=== PATIENT | female | born 1980 | race Caucasian/White ===

== ENCOUNTER 2016-12-03 19:23 | Emergency (ER) | payer BC, OTHER ==
[~2016-12-03] VITALS: Ht 170.2 cm; Wt 164.5 kg
[~2016-12-03 19:23] MED LIST: AMOX TR-K CLV1 EAC4 PO; Augmentin PO; BUPROPION HCL100 M1 PO; CATAPRES0.1 MG PO; CELEXA20 MG PO; CLONIDINE HCL0.1 MG PO; FLEXERIL10 MG PO; FUROSEMIDE40 MG PO; HYDROCODON-ACE1 EAC7 PO; LABETALOL HCL100 MG PO; LASIX40 MG PO; LOTREL 10/41 CAPSULE PO; NAPROSYN500 MG PO; Natalcare Rx,Pramile PO; Normodyne,Trandate PO; OMEPRAZOLE40 M1 PO; PRILOSEC OTC; PRILOSEC40 MG PO; SERTRALINE HCL50 MG PO; WELLBUTRIN SR100 MG PO; WELLBUTRIN100 MG PO; Wellbutrin PO; ZITHROMAX Z-PA250 MG PO; Zovirax PO
[2016-12-03 20:09] LABS: HEMATOCRIT 37.9 % (36.0-46.0); MCH 28.6 PG (29.0-34.0); MCHC 31.7 G/DL (30.0-36.0); MCV 90.2 FL (83-99); MEAN PLAT.VOLUME 10.5 uM^3 (9.5-12.4); PLATELET COUNT 318 K/uL (156-360); RBC DIS.WIDTH-CV 13.5 % (11.8-14.6); RBC DIS.WIDTH-SD 44.3 % (39-53); WHITE BLOOD COUNT 8.2 K/uL (4.1-10.2)
[2016-12-03 20:23] LABS: CHLORIDE 107 mEq/L (99-109); POTASSIUM 3.9 mEq/L (3.7-5.4); SODIUM 142 mEq/L (136-147)
[2016-12-03 20:25] LABS: GLUCOSE 108 mg/dL (70-99)
[2016-12-03 20:26] LABS: ANION GAP 12 MEQ/L (2-14)
[2016-12-03 20:28] LABS: SERUM ETHYL ALCOHOL < 10 mg/dL
[2016-12-03 20:29] LABS: GFR ESTIMATE (CALCULATED) > 59 mL/min/
[2016-12-03 20:30] LABS: UREA NITROGEN (BUN) 16 mg/dL (9-23)
[2016-12-03] MEDS ORDERED: LORATADINE10 M2 PO (20:40)
[2016-12-03] MEDS ORDERED: PNV PRENATAL P1 EACH PO (20:40)
[2016-12-03] MEDS ORDERED: BUTALB-APAP-CA1 EACH PO (20:41)
[2016-12-03 21:44] LABS: AMPHETAMINE NEGATIVE (500 ng/mL); BARBITURATES PRESUMPTIVE POSITIVE (200 ng/mL); BENZODIAZEPINES NEGATIVE (150 ng/mL); COCAINE NEGATIVE (150 ng/mL); METHADONE NEGATIVE (200 ng/mL); METHAMPHETAMINE NEGATIVE (500 ng/mL); OPIATES (MORPHINE) NEGATIVE (100 ng/mL); PHENCYCLIDINE NEGATIVE (25 ng/mL); THC CANNABINOIDS NEGATIVE (50 ng/mL); TRICYCLIC ANTIDEPRESSANTS NEGATIVE (300 ng/mL)
[2016-12-03 21:45] LABS: ADD MEDTOX COMMENT Y; INTERNAL CONTROLS VALID? YES; OXYCODONE NEGATIVE (100 ng/mL); PROPOXYPHENE NEGATIVE (300 ng/mL)
[2016-12-03 22:20] VITALS: BP 146/87
== END 2016-12-03 22:23 | disposition home or self-care (01) ==
LOC: EME 19:23
DX: F32.2 Major depressive disorder, single episode, severe without psychotic features (principal); I10 Essential (primary) hypertension
CPT/HCPCS: 80048; 84999; 85027; 90839; 99281; 99285; G0480

== ENCOUNTER 2017-04-23 22:35 | Emergency (ER) | payer BC, OTHER ==
[~2017-04-23] VITALS: Ht 170.2 cm; Wt 168.6 kg
[~2017-04-23 22:35] MED LIST changes: +BUTALB-APAP-CA1 EACH PO; +LORATADINE10 M2 PO; +PNV PRENATAL P1 EACH PO
[2017-04-24] MEDS ORDERED: BENADRYL50 MG PO (00:33)
[2017-04-24] MEDS ORDERED: ZANTAC150 MG PO (00:33)
[2017-04-24] MEDS ORDERED: PREDNISONE20 MG PO (00:33)
[2017-04-24 01:08] VITALS: BP 159/75
== END 2017-04-24 01:14 | disposition home or self-care (01) ==
LOC: RME 22:35 → EME 22:35 → RME 04-24 01:14
DX: L50.9 Urticaria, unspecified (principal); K21.9 Gastro-esophageal reflux disease without esophagitis
CPT/HCPCS: 99281; 99285; J1200; J2930; J7512; S0028